=== PATIENT | male | born 1950 | race Caucasian/White ===

== ENCOUNTER 2018-08-17 21:53 | Emergency (ER) | payer MEDICARE, OTHER, SELFPAY ==
[2018-08-17 21:54] VITALS: BP 131/81; PULSE 72; RESP 15; TEMP 36.6; O2SAT 96; BMI 26.1
--- NOTE | 2018-08-17 23:51 | ED.VISSUMM ---
- ER Visit Summary Date of Service: 08/17/18 Chief Complaint: Laceration right hand] History of Present Illness: The patient is a 68 M [presents the emergency department with laceration to his right hand that occurred around 7 PM. Patient states that he was working in the garage when he accidentally brushed his hand against a piece of siding in the garage. Patient is left-hand dominant. Patient is up-to-date on tetanus.] Physical Examination: [Right hand-patient has a 3 cm laceration over the dorsal aspect of the hand traversing across the fifth and fourth metacarpals. Laceration is superficial and does not involve any tendons. He has normal range of motion flexion extension of all digits. No active bleeding noted currently.] Test Results: [None indicated] Emergency Department Course and Treatment: [Laceration repair-wound sterilely draped and prepped. Will cause of her cleansed and irrigated with copious saline. Wound anesthetized locally with 1% lidocaine total of 6 cc. Using 5-0 nylon a total of 7 simple interrupted sutures placed with good wound edge approximation. Patient tired procedure well. Clean dressing applied.] Treatment Plan: [Follow-up with primary care physician in 10 days for suture removal. Patient advised to return if increasing pain, redness, swelling, purulent drainage, or conditions worsen anyway.] Disposition: [Discharged home stable condition.] Impression: [Laceration right hand 3 cm-simple repair] This note was generated with [email or web address] dictation software. It may contain incorrect words, spelling, and punctuation that were not noted in review of the chart prior to signing ED Disposition - Plan for ED Patient: Referrals: Roni Chery III, MD [Primary Care Provider] -
--- NOTE | 2018-08-17 23:53 | ED.DEP ---
ED Disposition - Plan for ED Patient: Instructions: LACERATION, Hand, LACERATION, Extrem (Suture, Staple or Tape) Referrals: Roni Chery III, MD [Primary Care Provider] - 10 Day for suture removal
[2018-08-18 00:04] VITALS: PULSE 88; RESP 16; O2SAT 98
== END 2018-08-18 00:12 | disposition home or self-care (01) ==
LOC: ED 08-18 00:09
PROVIDERS: Emergency Provider Emergency Medicine; Family Provider Family Medicine; PCP Family Medicine
DX: S61.411A Laceration without foreign body of right hand, initial encounter (principal); W26.8XXA Contact with other sharp object(s), not elsewhere classified, initial encounter; Y93.9 Activity, unspecified; Y92.9 Unspecified place or not applicable
CPT/HCPCS: 12002; 99282